=== PATIENT | male | born 2000 | race Two or more races ===

== ENCOUNTER 2021-02-21 08:07 | Emergency (ER) | payer OTHER ==
[~2021-02-21] VITALS: Ht 185.4 cm; Wt 90.7 kg
== END 2021-02-21 14:24 | disposition home or self-care (01) ==
LOC: ER 08:07 → EDSEX 08:25 → ER 14:24
DX: K52.9 Noninfective gastroenteritis and colitis, unspecified (principal); Z11.52 Encounter for screening for COVID-19

== ENCOUNTER 2021-03-01 06:38 | Emergency (ER) | payer OTHER ==
[~2021-03-01] VITALS: Ht 185.4 cm; Wt 90.7 kg
[2021-03-01] MEDS ORDERED: AMOX1TAB5 PO (08:57)
[2021-03-01] MEDS ORDERED: INTESTINEX680 M2 PO (08:57)
[2021-03-01] MEDS ORDERED: NAPROXEN375 MG PO (08:57)
== END 2021-03-01 09:05 | disposition home or self-care (01) ==
LOC: ER 06:38
DX: S69.81XA Other specified injuries of right wrist, hand and finger(s), initial encounter (principal); X58.XXXA Exposure to other specified factors, initial encounter; Y93.89 Activity, other specified; Y92.018 Other place in single-family (private) house as the place of occurrence of the external cause; Y99.8 Other external cause status

== ENCOUNTER 2023-01-27 12:52 | Outpatient (CLI) | payer OTHER ==
[~2023-01-27 12:52] MED LIST: AMOX1TAB5 PO; INTESTINEX680 M2 PO; NAPROXEN375 MG PO
== END 2023-01-27 12:59 | disposition home or self-care (01) ==
LOC: RAD 12:52
PROVIDERS: ATTEND General Practice
DX: R06.02 Shortness of breath (principal); Z57.2 Occupational exposure to dust; Z13.88 Encounter for screening for disorder due to exposure to contaminants